=== PATIENT | male | born 1960 | race Caucasian/White ===

== ENCOUNTER 2020-03-31 09:40 | Inpatient (IN) | payer OTHER, SELFPAY ==
[2020-03-31] VITALS (7 sets, daily range): BP systolic 143–173; BP diastolic 74–104; PULSE 111–130; RESP 18–22; TEMP 36.6–37.2; O2SAT 93–97; BMI 29.7
[2020-03-31] MEDS: LORazepam 2 MG/ML VIAL IM ×2 (10:41→23:40)
--- NOTE | 2020-03-31 10:51 | PC.NURSE ---
pt alert and oriented, skin slightly warm to touch, respirations even and unlabored, pt reports drinking 48 12 oz beers in the last two days in the intent to drink himself into oblivion/ states he just wanted to drink himself to , having racing thoughts and feels depressed as well. sinus tach on the monitor with visible tremor. unable to obtain an iv access at this time.
--- NOTE | 2020-03-31 12:43 | ED.ALCOHOL ---
HPI - Alcohol General Chief Complaint: ETOH/Substance Use Stated Complaint: alcohol withdrawal Time Seen by Provider: 03/31/20 10:01 Source: patient Mode of arrival: ambulatory Limitations: no limitations History of Present Illness HPI narrative: 60yoM c PMHx of alcohol dependent, liver cirrhosis, hypertension, anxiety, GI disease and psoriasis presenting to the ED c c/o increased depression and attempts of SI by drinking 48 12 oz beers in the past 2 days. Patient states ?I just want to drink myself to I keep having racing thoughts?. Reports he is currently homeless. Denies any drug usage. Denies any auditory or visual hallucination or self-injury baker. Related Data Allergies Allergy/AdvReac Type Severity Reaction Status Date / Time trazodone Allergy Nasal Verified 03/31/20 10:01 congestion Review of Systems Review of Systems: Constitutional : No Fever, No Chills ENT/Mouth : No Ear Pain, No Nasal Congestion, No sore throat Eyes: No Eye Pain, No Swelling, No Redness Cardiovascular : No Chest Pain, No SOB Respiratory : No Cough, No Sputum, No Dyspnea Gastrointestinal : No ingestions, No Nausea, No Vomiting, No Diarrhea, No Hematochezia, No Melena Genitourinary : No Dysuria, No Urinary Frequency, No Hematuria Musculoskeletal : No Myalgias Skin : No Skin Lesions, No rash Neuro : No Weakness, No Numbness, No Paresthesias, No Dizziness, No Headache Psych : + Anxiety, + Depression, + SI, No HI, No AVH, + thoughts of self injury Heme/Lymph: No Lymphadenopathy Endocrine : No Polyuria, No Polydipsia Yes all other systems are reviewed and are negative [facility] Past Medical History Attestation statement: The following information was validated with the patient. Medical History HTN (hypertension) Psoriasis Social History Social History Alcohol intake: current Alcohol intake frequency: 3 or more drinks per day Alcohol type: beer Smoking Status: Never smoker Use of substances other than those prescribed or required for medical reasons: No Advance Directives: No Advance Directives Information Provided: No Physical Exam Vital Signs: Vital Signs: Last Vital Signs Temp 98 F 03/31/20 14:00 Pulse 111 H 03/31/20 14:00 Resp 18 03/31/20 14:00 BP 144/87 H 03/31/20 10:46 Pulse Ox 93 03/31/20 14:00 Body Mass Index 29.7 vital signs have been reviewed as normal and appeared to be correct. Blood pressure normal. Heart rate normal. Respiration rate normal. Temperature normal. Oxygen saturation normal. Appearance: Alert. Oriented X3. No acute distress. ETOH on breath. Head: Normal external exam. Normocephalic. Atraumatic. No Chambers signs noted. No raccoon eyes noted Eyes: PERRLA. EOMI. Conjunctiva and sclera normal. Eyelids normal. ENT: EAC normal. TM's Normal. Pharynx normal. Uvula midline. Moist mucous membranes. No trismus noted. No drooling noted. No muffled voice noted. Neck: Normal inspection. Neck supple. FROM. No adenopathy. Thyroid Normal. No meningeal signs. No neck mass noted. CVS: Normal heart rate and rhythm. Heart sound normal. No murmurs noted. Pulses normal throughout. Respiratory: No respiratory distress. Painless inspiration. Breath sounds normal. No wheezes/rales/rhonchi noted. Chest nontender. No accessory muscle usage noted or decreased air movement noted. Abdomen: Soft and nontender. Bowel sounds normal in all 4 quadrants. No distention noted. No organomegaly noted. No visible injury noted. Back: No CVA tenderness. Full range of motion noted. Skin: Skin warm and dry. Normal skin color. Normal skin turgor. No lesions/lacerations noted. Patient noted to have psoriasis to bilateral lower extremities. No signs of infection. Extremities: No lower extremity edema. Extremities exhibit normal range of motion. Extremities nontender. Neuro: Oriented X 3. No motor deficit. No sensory deficit. Reflexes normal. Psych: Appearance grossly normal, well-kept, mental status normal, speech and movement normal, speech clear, patient appears very sad and anxious along with depressed. Is cooperative. Does not have a normal thought process/thought content/insight/judgment. Course Course Course Narrative: 10:21 - 60yoM c PMHx of alcohol dependent, liver cirrhosis, hypertension, anxiety, GI disease and psoriasis presenting to the ED c c/o increased depression and attempts of SI by drinking 48 12 oz beers in the past 2 days. Patient states ?I just want to drink myself to I keep having racing thoughts?. - Plan: Labs. Provide 2 mg of Ativan. Then once medically cleared will obtain a BHN evaluation. Reevaluation(s) Reevaluation #1: - AST 103. ALT 84. ETOH level 230. Otherwise all other labs WNL. - patient is currently resting at this time respirations even and unlabored in no apparent distress. Patient medically cleared awaiting BHN evaluation. Will continue to monitor. Time: 15:10 [facility] - Alcohol Medical Records Attestation: I reviewed the patient's medical records. Lab Data Attestation: I reviewed the patient's lab results. Result diagrams: 03/31/20 12:48 03/31/20 12:48 Labs: Lab Results 03/31/20 03/31/20 03/31/20 Range/Units 12:48 12:48 12:48 WBC 7.6 (4.8-10.8) X10*3/uL RBC 4.24 L (4.60-5.80) X10*6/uL Hgb 13.1 L (14.0-18.0) g/dl Hct 37.9 L (42-52) % MCV 89.4 (80-98) fL MCH 30.9 (27.0-33.0) pg MCHC 34.6 (31.0-36.0) g/dl RDW 14.4 (11.0-16.0) % Plt Count 202 (160-400) X10*3/uL MPV 8.7 L (9.4-12.4) fL Immature Gran % (Auto) 0.1 (0.0-0.4) % Neut % (Auto) 73.1 H (45-73) % Lymph % (Auto) 17.5 L (20-40) % [place] % (Auto) 7.3 (2-11) % Eos % (Auto) 1.3 (0-4) % Baso % (Auto) 0.7 (0-2) % Lymph # (Auto) 1.3 (1.2-4.9) X10*3/uL [place] # (Auto) 0.6 (0.1-1.2) X10*3/uL Eos # (Auto) 0.1 (0.0-0.4) X10*3/uL Baso # (Auto) 0.1 (0.0-0.2) X10*3/uL Abs Immat Gran (auto) 0.01 (0.00-0.03) X10*3/uL Absolute Neuts (auto) 5.5 (2.0-8.3) X10*3/uL Absolute Nucleated RBC 0.000 (0.0-0.012) X10*3/uL Nucleated RBC % (auto) 0.0 (0.0-0.2) /100WBC Hold Purple Top SEE NOTE Hold Blue Top SEE NOTE Sodium (135-145) mmol/L Potassium (3.3-5.1) mmol/l Chloride (96-108) mmol/L Carbon Dioxide (22-29) mmol/L Anion Gap (12-20) BUN (9-16) mg/dL Creatinine (0.5-1.4) mg/dL Estim Creat Clear Calc Estimated GFR Random Glucose (60-115) mg/dL Calcium (8.4-10.2) mg/dL Magnesium (1.6-2.6) mg/dL Total Bilirubin (0.0-1.0) mg/dL Direct Bilirubin (0.0-0.5) mg/dL AST (5-37) U/L ALT (0-40) U/L Alkaline Phosphatase (39-117) U/L Total Protein (6.5-8.0) g/dL Albumin (3.5-5.0) g/dL Urine Color Urine Appearance Urine pH (5.0-8.0) Ur Specific [place] (1.005-1.025) Urine Protein (NEG-TRACE) MG/DL Urine Glucose (UA) (NEG) MG/DL Urine Ketones (NEG) MG/DL Urine Blood (NEG) Urine Nitrite (NEG) Ur Leukocyte Esterase (NEG) Urine RBC (0) /HPF Urine WBC (0-4) /HPF Ur Squamous Epith Cells /LPF Urine Bacteria /LPF Urine Opiates Screen (Not Detect) Ur Barbiturates Screen (Not Detect) Ur Phencyclidine Scrn (Not Detect) Ur Amphetamines Screen (Not Detect) U Benzodiazepines Scrn (Not Detect) Urine Cocaine Screen (Not Detect) U Marijuana (THC) Screen (Not Detect) Ethyl Alcohol mg/dL 03/31/20 03/31/20 03/31/20 Range/Units 12:48 12:48 14:07 WBC (4.8-10.8) X10*3/uL RBC (4.60-5.80) X10*6/uL Hgb (14.0-18.0) g/dl Hct (42-52) % MCV (80-98) fL MCH (27.0-33.0) pg MCHC (31.0-36.0) g/dl RDW (11.0-16.0) % Plt Count (160-400) X10*3/uL MPV (9.4-12.4) fL Immature Gran % (Auto) (0.0-0.4) % Neut % (Auto) (45-73) % Lymph % (Auto) (20-40) % [place] % (Auto) (2-11) % Eos % (Auto) (0-4) % Baso % (Auto) (0-2) % Lymph # (Auto) (1.2-4.9) X10*3/uL [place] # (Auto) (0.1-1.2) X10*3/uL Eos # (Auto) (0.0-0.4) X10*3/uL Baso # (Auto) (0.0-0.2) X10*3/uL Abs Immat Gran (auto) (0.00-0.03) X10*3/uL Absolute Neuts (auto) (2.0-8.3) X10*3/uL Absolute Nucleated RBC (0.0-0.012) X10*3/uL Nucleated RBC % (auto) (0.0-0.2) /100WBC Hold Purple Top Hold Blue Top Sodium 138 (135-145) mmol/L Potassium 3.9 (3.3-5.1) mmol/l Chloride 102 (96-108) mmol/L Carbon Dioxide 20 L (22-29) mmol/L Anion Gap 20 (12-20) BUN 4 L (9-16) mg/dL Creatinine 0.65 (0.5-1.4) mg/dL Estim Creat Clear Calc 143.8 Estimated GFR > 60 Random Glucose 94 (60-115) mg/dL Calcium 7.6 L (8.4-10.2) mg/dL Magnesium 1.9 (1.6-2.6) mg/dL Total Bilirubin 0.4 (0.0-1.0) mg/dL Direct Bilirubin 0.3 (0.0-0.5) mg/dL AST 103 H (5-37) U/L ALT 84 H (0-40) U/L Alkaline Phosphatase 67 (39-117) U/L Total Protein 6.4 L (6.5-8.0) g/dL Albumin 3.9 (3.5-5.0) g/dL Urine Color YELLOW Urine Appearance CLEAR Urine pH 6.0 (5.0-8.0) Ur Specific [place] 1.015 (1.005-1.025) Urine Protein NEG (NEG-TRACE) MG/DL Urine Glucose (UA) NEG (NEG) MG/DL Urine Ketones 15 (NEG) MG/DL Urine Blood TRACE (NEG) Urine Nitrite NEG (NEG) Ur Leukocyte Esterase NEG (NEG) Urine RBC 0-2 (0) /HPF Urine WBC 0 (0-4) /HPF Ur Squamous Epith Cells TRACE /LPF Urine Bacteria NONE /LPF Urine Opiates Screen (Not Detect) Ur Barbiturates Screen (Not Detect) Ur Phencyclidine Scrn (Not Detect) Ur Amphetamines Screen (Not Detect) U Benzodiazepines Scrn (Not Detect) Urine Cocaine Screen (Not Detect) U Marijuana (THC) Screen (Not Detect) Ethyl Alcohol 230 mg/dL 03/31/20 Range/Units 14:07 WBC (4.8-10.8) X10*3/uL RBC (4.60-5.80) X10*6/uL Hgb (14.0-18.0) g/dl Hct (42-52) % MCV (80-98) fL MCH (27.0-33.0) pg MCHC (31.0-36.0) g/dl RDW (11.0-16.0) % Plt Count (160-400) X10*3/uL MPV (9.4-12.4) fL Immature Gran % (Auto) (0.0-0.4) % Neut % (Auto) (45-73) % Lymph % (Auto) (20-40) % [place] % (Auto) (2-11) % Eos % (Auto) (0-4) % Baso % (Auto) (0-2) % Lymph # (Auto) (1.2-4.9) X10*3/uL [place] # (Auto) (0.1-1.2) X10*3/uL Eos # (Auto) (0.0-0.4) X10*3/uL Baso # (Auto) (0.0-0.2) X10*3/uL Abs Immat Gran (auto) (0.00-0.03) X10*3/uL Absolute Neuts (auto) (2.0-8.3) X10*3/uL Absolute Nucleated RBC (0.0-0.012) X10*3/uL Nucleated RBC % (auto) (0.0-0.2) /100WBC Hold Purple Top Hold Blue Top Sodium (135-145) mmol/L Potassium (3.3-5.1) mmol/l Chloride (96-108) mmol/L Carbon Dioxide (22-29) mmol/L Anion Gap (12-20) BUN (9-16) mg/dL Creatinine (0.5-1.4) mg/dL Estim Creat Clear Calc Estimated GFR Random Glucose (60-115) mg/dL Calcium (8.4-10.2) mg/dL Magnesium (1.6-2.6) mg/dL Total Bilirubin (0.0-1.0) mg/dL Direct Bilirubin (0.0-0.5) mg/dL AST (5-37) U/L ALT (0-40) U/L Alkaline Phosphatase (39-117) U/L Total Protein (6.5-8.0) g/dL Albumin (3.5-5.0) g/dL Urine Color Urine Appearance Urine pH (5.0-8.0) Ur Specific [place] (1.005-1.025) Urine Protein (NEG-TRACE) MG/DL Urine Glucose (UA) (NEG) MG/DL Urine Ketones (NEG) MG/DL Urine Blood (NEG) Urine Nitrite (NEG) Ur Leukocyte Esterase (NEG) Urine RBC (0) /HPF Urine WBC (0-4) /HPF Ur Squamous Epith Cells /LPF Urine Bacteria /LPF Urine Opiates Screen Not Detected (Not Detect) Ur Barbiturates Screen POSITIVE H (Not Detect) Ur Phencyclidine Scrn Not Detected (Not Detect) Ur Amphetamines Screen Not Detected (Not Detect) U Benzodiazepines Scrn POSITIVE H (Not Detect) Urine Cocaine Screen Not Detected (Not Detect) U Marijuana (THC) Screen Not Detected (Not Detect) Ethyl Alcohol mg/dL Discharge Plan Discharge Clinical Impression: Alcoholic intoxication, Depression, Suicidal ideation
[2020-03-31 12:58] LABS: MANUAL DIFF FLAG NO
[2020-03-31 12:59] LABS: Basophils Absolute Auto 0.1 X10*3/uL (0.0-0.2); Basophils Percent Auto 0.7 % (0-2); Eosinophils Absolute Auto 0.1 X10*3/uL (0.0-0.4); Eosinophils Percent Auto 1.3 % (0-4); Hematocrit 37.9 % (42-52); Hemoglobin 13.1 g/dl (14.0-18.0); Imm Gran Abs Auto 0.01 X10*3/uL (0.00-0.03); Imm Gran Pct Auto 0.1 % (0.0-0.4); Lymphocytes Absolute Auto 1.3 X10*3/uL (1.2-4.9); Lymphocytes Percent Auto 17.5 % (20-40); Mean Corpuscular HGB Conc 34.6 g/dl (31.0-36.0); Mean Corpuscular Hemoglobin 30.9 pg (27.0-33.0); Mean Corpuscular Volume 89.4 fL (80-98); Mean Platelet Volume 8.7 fL (9.4-12.4); Monocytes Absolute Auto 0.6 X10*3/uL (0.1-1.2); Monocytes Percent Auto 7.3 % (2-11); Neutrophils Absolute Auto 5.5 X10*3/uL (2.0-8.3); Neutrophils Percent Auto 73.1 % (45-73); Platelet Count 202 X10*3/uL (160-400); Red Blood Count 4.24 X10*6/uL (4.60-5.80); Red Cell Distribution Width 14.4 % (11.0-16.0); White Blood Count 7.6 X10*3/uL (4.8-10.8)
[2020-03-31 13:44] LABS: Ethanol 230 mg/dL
[2020-03-31 13:51] LABS: Alanine Aminotransferase 84 U/L (0-40); Albumin Level 3.9 g/dL (3.5-5.0); Alkaline Phosphatase 67 U/L (39-117); Anion Gap 20 (12-20); Aspartate Amino Transferase 103 U/L (5-37); Bilirubin Direct 0.3 mg/dL (0.0-0.5); Bilirubin Total 0.4 mg/dL (0.0-1.0); Blood Urea Nitrogen 4 mg/dL (9-16); Calcium 7.6 mg/dL (8.4-10.2); Carbon Dioxide 20 mmol/L (22-29); Chloride 102 mmol/L (96-108); Creatinine Clr Calc Pharmacy 143.8; Estimated Glomerular Filt Rate > 60; Glucose Random 94 mg/dL (60-115); Magnesium 1.9 mg/dL (1.6-2.6); Potassium 3.9 mmol/l (3.3-5.1); Sodium 138 mmol/L (135-145); Total Protein 6.4 g/dL (6.5-8.0)
[2020-03-31 14:14] LABS: Glucose Urine UA NEG (NEG); Leukocyte Esterase Urine NEG (NEG); Nitrite Urine NEG (NEG); Specific Gravity - Urine 1.015 (1.005-1.025); Urine Blood TRACE (NEG); Urine Ketones 15 MG/DL (NEG); Urine Protein NEG (NEG-TRACE)
[2020-03-31 14:30] LABS: Appearance Urine CLEAR; Color Urine YELLOW
--- NOTE | 2020-03-31 14:41 | PC.NURSE ---
[facility] contacted for pt eval, pt awaiting clinician.
[2020-03-31 14:42] LABS: Amphetamine Screen Urine Not Detected (Not Detect); Barbiturates, Urine POSITIVE (Not Detect); Benzodiazepines Screen Urine POSITIVE (Not Detect); Cannabinoid Screen Urine Not Detected (Not Detect); Cocaine Screen Urine Not Detected (Not Detect); Opiate Screen Urine Not Detected (Not Detect); Phencyclidine Screen Urine Not Detected (Not Detect)
[2020-03-31 14:43] LABS: RBC Urine 0-2 /HPF (0); Squamous Epithelial Cell Urine TRACE /LPF; WBC Urine 0 /HPF (0-4)
[2020-03-31] MEDS: LORazepam 1 MG TABLET 2 MG PO ×2 (16:19→20:09)
--- NOTE | 2020-03-31 16:25 | PC.NURSE ---
Pt ambulated to pod with steady gait. Appears tremulous. PT reporting symptoms of withdrawal, medicated per EMAR. Pt denies other complaints. pt waiting to speak with N.
[2020-03-31] MEDS: chlordiazePOXIDE HCl 25 MG CAPSULE 50 MG PO (18:09)
--- NOTE | 2020-03-31 22:25 | PC.NURSE ---
Patient in bed appears sleeping, CIWA was 0 at this time, will continue to monitor for withdrawal, denied distress at this time, will continue to monitor.
--- NOTE | 2020-03-31 23:04 | PC.NURSE ---
Patient BP 161/94, HR 127, provider notified/ordered to move patient to main ED, Patient made aware, will continue to monitor.
[2020-04-01] VITALS (9 sets, daily range): BP systolic 136–164; BP diastolic 84–99; PULSE 93–112; RESP 16–22; TEMP 36.4–37; O2SAT 95–100
[2020-04-01] MEDS: PHENobarbitaL sodium 130 MG/ML VIAL 186 MG IM (00:03)
--- NOTE | 2020-04-01 00:27 | MHC.CARE ---
At the request of GATO Nova, CARE Team reaches out to [facility] to request a current medication list. Med list is faxed to THUY singh from [place]. [facility] staff are very familiar with pt and willing to provide additional info as needed.
--- NOTE | 2020-04-01 00:42 | PC.NURSE ---
03/31/20 2340: Patient awake and alert, diaphoretic with tremors. Remains tachycardic on monitor with rate 120s. Multiple IV attempts by attendings unsuccessful. IM Ativan given 2mg per order. 04/01/20 0000: IV access obtained by Dr. Stringer to left AC via ultrasound and IVF NS bolus started. 04/01/20 0005: IM Phenobarb given as ordered. Pt remains awake and alert. Linens changed due to patient diaphoresis. Pt able to stand at side of bed with assistance. Placed back on quality assurance monitor body with rates 115-120 bpm. 1:[address]
--- NOTE | 2020-04-01 01:10 | MHC.CARE ---
CARE Team notifies [facility], who is currently conducting an EATS bedsearch that pt is being medically admitted. Per Quintero at [facility], pt was cleared of needing inpt LOC. Please reconsult [facility] or CARE Team as needed for substance use treatment referral once medically cleared.
[2020-04-01 02:42] LABS: COVID-19 Test Negative (Negative); IDNOW Serial# 9DD0AD1C
[2020-04-01] MEDS: PHENobarbitaL sodium 130 MG/ML VIAL 140 MG IM ×2 (03:02→06:06)
--- NOTE | 2020-04-01 03:04 | PC.NURSE ---
Pt sleeping initially when entering room. Awoke easily with verbal stimuli. Phenobarb dose administered as ordered. VSS. Pt denies tremors/diaphoresis/headache. No acute distress noted at this time, will continue to monitor. awaiting bed assignment
--- NOTE | 2020-04-01 03:59 | PC.NURSE ---
Attempt to call [facility] for report, will call down here when ready
--- NOTE | 2020-04-01 05:52 | PM.IMHP ---
History of Present Illness Date of Service: 03/31/20 Chief Complaint: Alcohol withdrawal This is a 60-year-old male with history of alcohol abuse, depression, hypertension, presents to the hospital initially stating that he had a suicide attempt by drinking 40 years in 48 hours. He was in that he would not wake up after drinking as many beers. He is severely depressed and does not want to live. [facility] evaluated patient and he was awaiting bed surge when he started having withdrawal symptoms including shakiness, hypertensive, tachycardic. Patient therefore is going to be admitted to medical team for alcohol withdrawal. He currently denies any headache, change in vision, chest pain, cough, shortness of breath, no abdominal pain. No nausea or vomiting but has diarrhea that started today. He has no urinary symptoms and No lower extremity edema. On his presentation to pr his heart rate is 128, temperature of 98.5?, respiratory rate of 20, blood pressure 173/91, satting 95% on room air Labs are significant for WBC count of 7.6, hemoglobin of 13.1, hematocrit 37.9, sodium of 138, potassium of 3.9, AST of 103, ALT of 84, UA negative, positive UDS for barbiturates as well as benzos, negative COVID Past medical history: Hypertension, cirrhosis, alcohol abuse- has not taking his blood pressure medications in 2 weeks Surgical history: Denies Family history: Denies Social history: Comes from home, does not drink tobacco, drinks alcohol daily 6 pack per day, uses no drugs. Review of Systems Review of Systems: Yes all other systems are reviewed and are negative [facility] Medical History HTN (hypertension) Psoriasis Social History Alcohol intake: current Alcohol intake frequency: 3 or more drinks per day Alcohol type: beer Smoking Status: Never smoker Use of substances other than those prescribed or required for medical reasons: No Advance Directives: No Advance Directives Information Provided: No Meds Allergies Allergy/AdvReac Type Severity Reaction Status Date / Time trazodone Allergy Nasal Verified 03/31/20 10:01 congestion Home Medications Medication Instructions Recorded Confirmed Type atenolol 25 mg PO DAILY 04/01/20 04/01/20 History disulfiram 250 mg PO DAILY 04/01/20 04/01/20 History gabapentin 300 mg PO TID 04/01/20 04/01/20 History hydroxyzine HCl 50 mg PO TID PRN 04/01/20 04/01/20 History ondansetron [Zofran ODT] 4 mg PO Q8H PRN 04/01/20 04/01/20 History paroxetine HCl 40 mg PO DAILY 04/01/20 04/01/20 History thiamine HCl (vitamin B1) 100 mg PO DAILY 04/01/20 04/01/20 History Physical Exam Vital Signs and Narrative: Vital Signs: Last Vital Signs Temp 97.7 F 04/01/20 05:31 Pulse 93 04/01/20 05:31 Resp 20 04/01/20 05:31 BP 138/88 04/01/20 05:31 Pulse Ox 96 04/01/20 05:31 Body Mass Index 29.7 Const: Other: Diaphoretic, appears uncomfortable, shaking Eyes: General: appearance normal, both eyes and all related structures Resp: Effort & Inspection: normal respiratory effort and able to speak in complete sentences Cardio: Rate: regular rate Rhythm: regular rhythm GI: Palpation (GI): Soft to palpation Auscultation: normal bowel sounds Skin: General skin exam: no rashes or lesions noted Neuro: Other: Asterixis present Cognition (Neuro): normal cognition Extrem: General: Yes normal to inspection and Yes no pedal edema Results Labs CBC and Chem 7: 03/31/20 12:48 03/31/20 12:48 Labs: Laboratory Results - last 24 hr 03/31/20 03/31/20 03/31/20 12:48 12:48 12:48 MCV 89.4 MCH 30.9 MCHC 34.6 RDW 14.4 Plt Count 202 MPV 8.7 L Immature Gran % (Auto) 0.1 Neut % (Auto) 73.1 H Lymph % (Auto) 17.5 L [place] % (Auto) 7.3 Eos % (Auto) 1.3 Baso % (Auto) 0.7 Lymph # (Auto) 1.3 [place] # (Auto) 0.6 Eos # (Auto) 0.1 Baso # (Auto) 0.1 Abs Immat Gran (auto) 0.01 Absolute Neuts (auto) 5.5 Absolute Nucleated RBC 0.000 Nucleated RBC % (auto) 0.0 Hold Purple Top SEE NOTE Hold Blue Top SEE NOTE Anion Gap Estim Creat Clear Calc Estimated GFR Random Glucose Calcium Magnesium Total Bilirubin Direct Bilirubin AST ALT Alkaline Phosphatase Total Protein Albumin Urine Color Urine Appearance Urine pH Ur Specific [place] Urine Protein Urine Glucose (UA) Urine Ketones Urine Blood Urine Nitrite Ur Leukocyte Esterase Urine RBC Urine WBC Ur Squamous Epith Cells Urine Bacteria Urine Opiates Screen Ur Barbiturates Screen Ur Phencyclidine Scrn Ur Amphetamines Screen U Benzodiazepines Scrn Urine Cocaine Screen U Marijuana (THC) Screen Ethyl Alcohol COVID-19 (SERJIO) COVID-19 [employer] 03/31/20 03/31/20 03/31/20 12:48 12:48 14:07 MCV MCH MCHC RDW Plt Count MPV Immature Gran % (Auto) Neut % (Auto) Lymph % (Auto) [place] % (Auto) Eos % (Auto) Baso % (Auto) Lymph # (Auto) [place] # (Auto) Eos # (Auto) Baso # (Auto) Abs Immat Gran (auto) Absolute Neuts (auto) Absolute Nucleated RBC Nucleated RBC % (auto) Hold Purple Top Hold Blue Top Anion Gap 20 Estim Creat Clear Calc 143.8 Estimated GFR > 60 Random Glucose 94 Calcium 7.6 L Magnesium 1.9 Total Bilirubin 0.4 Direct Bilirubin 0.3 AST 103 H ALT 84 H Alkaline Phosphatase 67 Total Protein 6.4 L Albumin 3.9 Urine Color YELLOW Urine Appearance CLEAR Urine pH 6.0 Ur Specific [place] 1.015 Urine Protein NEG Urine Glucose (UA) NEG Urine Ketones 15 Urine Blood TRACE Urine Nitrite NEG Ur Leukocyte Esterase NEG Urine RBC 0-2 Urine WBC 0 Ur Squamous Epith Cells TRACE Urine Bacteria NONE Urine Opiates Screen Ur Barbiturates Screen Ur Phencyclidine Scrn Ur Amphetamines Screen U Benzodiazepines Scrn Urine Cocaine Screen U Marijuana (THC) Screen Ethyl Alcohol 230 COVID-19 (SERJIO) COVID-19 [employer] 03/31/20 04/01/20 14:07 02:22 MCV MCH MCHC RDW Plt Count MPV Immature Gran % (Auto) Neut % (Auto) Lymph % (Auto) [place] % (Auto) Eos % (Auto) Baso % (Auto) Lymph # (Auto) [place] # (Auto) Eos # (Auto) Baso # (Auto) Abs Immat Gran (auto) Absolute Neuts (auto) Absolute Nucleated RBC Nucleated RBC % (auto) Hold Purple Top Hold Blue Top Anion Gap Estim Creat Clear Calc Estimated GFR Random Glucose Calcium Magnesium Total Bilirubin Direct Bilirubin AST ALT Alkaline Phosphatase Total Protein Albumin Urine Color Urine Appearance Urine pH Ur Specific [place] Urine Protein Urine Glucose (UA) Urine Ketones Urine Blood Urine Nitrite Ur Leukocyte Esterase Urine RBC Urine WBC Ur Squamous Epith Cells Urine Bacteria Urine Opiates Screen Not Detected Ur Barbiturates Screen POSITIVE H Ur Phencyclidine Scrn Not Detected Ur Amphetamines Screen Not Detected U Benzodiazepines Scrn POSITIVE H Urine Cocaine Screen Not Detected U Marijuana (THC) Screen Not Detected Ethyl Alcohol COVID-19 (SERJIO) Negative COVID-19 Clin Com See Note Assessment and Plan (1) Depression: Status: Acute (2) Suicidal ideation: Status: Acute (3) Alcohol withdrawal syndrome: Qualifiers: Complication of substance-induced condition: with unspecified complication Qualified Code(s): F10.239 - Alcohol dependence with withdrawal, unspecified Status: Acute (4) EtOH dependence: Status: Acute (5) HTN (hypertension): Status: Acute This is a 58 O2 year old male with past medical history of depression who presents to the hospital with suicidal ideation/attempt, found to be in alcohol withdrawal # alcohol withdrawal - daily drinker, attempted to drink 48 beers to end his life 2 days prior to presentation to the hospital - will start him on phenobarbital - folic acid and thiamine - monitor for improving withdrawal symptoms # suicide attempt/ideation - evaluated by psych - patient awaiting bed - management per psych - sitter # hypertension - continue atenolol DVT prophylaxis heparin subQ
[2020-04-01] MEDS: Heparin Sodium,Porcine 5,000 UNIT/ML VIAL 5000 UNIT SUBCUT ×2 (06:06→17:16)
[2020-04-01] MEDS: 0.9 % Sodium Chloride Flush 3 ML SYRINGE IVFLUSH ×3 (06:07→17:18)
[2020-04-01 07:07] LABS: MANUAL DIFF FLAG NO
[2020-04-01 07:13] LABS: Basophils Absolute Auto 0.1 X10*3/uL (0.0-0.2); Basophils Percent Auto 0.9 % (0-2); Eosinophils Absolute Auto 0.2 X10*3/uL (0.0-0.4); Eosinophils Percent Auto 3.1 % (0-4); Hematocrit 37.8 % (42-52); Hemoglobin 13.1 g/dl (14.0-18.0); Imm Gran Abs Auto 0.02 X10*3/uL (0.00-0.03); Imm Gran Pct Auto 0.3 % (0.0-0.4); Lymphocytes Absolute Auto 1.2 X10*3/uL (1.2-4.9); Lymphocytes Percent Auto 21.1 % (20-40); Mean Corpuscular HGB Conc 34.7 g/dl (31.0-36.0); Mean Corpuscular Hemoglobin 30.5 pg (27.0-33.0); Mean Corpuscular Volume 88.1 fL (80-98); Mean Platelet Volume 9.4 fL (9.4-12.4); Monocytes Absolute Auto 0.6 X10*3/uL (0.1-1.2); Monocytes Percent Auto 10.9 % (2-11); Neutrophils Absolute Auto 3.7 X10*3/uL (2.0-8.3); Neutrophils Percent Auto 63.7 % (45-73); Platelet Count 185 X10*3/uL (160-400); Red Blood Count 4.29 X10*6/uL (4.60-5.80); Red Cell Distribution Width 14.1 % (11.0-16.0); White Blood Count 5.9 X10*3/uL (4.8-10.8)
[2020-04-01 07:38] LABS: Anion Gap 17 (12-20); Blood Urea Nitrogen 4 mg/dL (9-16); Carbon Dioxide 24 mmol/L (22-29); Chloride 97 mmol/L (96-108); Creatinine Clr Calc Pharmacy 158.4; Estimated Glomerular Filt Rate > 60; Glucose Random 78 mg/dL (60-115); Potassium 3.9 mmol/l (3.3-5.1); Sodium 134 mmol/L (135-145)
[2020-04-01 07:48] LABS: Calcium 8.2 mg/dL (8.4-10.2)
[2020-04-01] MEDS: PHENobarbitaL 30 MG TABLET 60 MG PO ×2 (09:35→20:22)
[2020-04-01] MEDS: Thiamine HCL 100 MG TABLET PO (09:35)
[2020-04-01] MEDS: Folic Acid 1 MG TABLET PO (09:35)
--- NOTE | 2020-04-01 10:52 | MHC.CM.PN ---
Addendum entered by Samina Thomas 04/01/20 10:58: pt will need a BHN evaluation once medically cleared Original Note: Pt reports he was recently asked to leave [place] and is now homeless. pt uses no DME and had no home services. Pt does have a PCP, Elisabet Prabhakar. Pt reports he has signed a HCP in the past. Pt reports being interested in treatment for his alcohol use and has spoken to the CARE team. Current DC plan pending CARE team referrals.
--- NOTE | 2020-04-01 13:22 | HO.PM.IMPN ---
Subjective Subjective Date of Service: 04/01/20 Interval History: Seen in f/u for alcohol withdrawal Review of Systems Gen: no fever Resp: no sob, no cough CV: no chest, no ABRAMS, no leg edema GI: No n/v, no abd pain Neuro: No confusion, some tremors Physical Exam Vital Signs: Vital Signs: Last Vital Signs Temp 98.6 F 04/01/20 11:28 Pulse 100 04/01/20 11:28 Resp 18 04/01/20 11:28 BP 142/86 H 04/01/20 11:28 Pulse Ox 97 04/01/20 11:28 Body Mass Index 29.7 General: AO X 3, no acute distress Resp: CTA bilateral CVS: S1,S2,RRR GI: +BS, NT, no distention Skin: No rash Neuro: motor grossly intact, tremors in hands Psych: appropriate affect Objective Data Current Medications Generic Name Dose Route Start Last Admin Trade Name Freq PRN Reason Stop Dose Admin Acetaminophen 650 mg 04/01/20 05:44 Acetaminophen 325 Mg Tablet PO Q6H PRN Pain, Mild (Pain Scale 1-3) Docusate Sodium 100 mg 04/01/20 05:44 Docusate Sodium 100 Mg Capsule PO DAILY PRN Constipation Folic Acid 1 mg 04/01/20 09:00 04/01/20 09:35 Folic Acid 1 Mg Tablet PO 1 mg DAILY SCARLETT Administration Heparin Sodium (Porcine) 5,000 unit 04/01/20 06:00 04/01/20 06:06 Heparin Sodium,Porcine 5,000 Unit/Ml Vial SUBCUT 5,000 unit Q12H SCARLETT Administration Medication 1 each 04/01/20 09:00 No Benzodiazepines MISCELLANE DAILY SCARLETT Ondansetron HCl 4 mg 04/01/20 05:44 Ondansetron Hcl 4 Mg/2 Ml Vial IVPUSH Q8H PRN Nausea and Vomiting Phenobarbital 60 mg 04/01/20 09:00 04/01/20 09:35 Phenobarbital 30 Mg Tablet PO 04/02/20 21:01 60 mg BID SCARLETT Administration Phenobarbital 30 mg 04/03/20 09:00 Phenobarbital 30 Mg Tablet PO 04/04/20 21:01 BID SCARLETT Phenobarbital 30 mg 04/05/20 09:00 Phenobarbital 30 Mg Tablet PO 04/06/20 09:01 DAILY SCARLETT Sodium Chloride 3 ml 04/01/20 05:44 04/01/20 09:34 0.9 % Sodium Chloride Flush 3 Ml Syringe IVFLUSH 3 ml QSHIFT SCARLETT Administration Thiamine HCl 100 mg 04/01/20 09:00 04/01/20 09:35 Thiamine Hcl 100 Mg Tablet PO 100 mg DAILY SCARLETT Administration Labs CBC & Chem 7: 04/01/20 06:11 04/01/20 06:11 Assessment and Plan (1) Depression: Status: Acute (2) Suicidal ideation: Status: Acute (3) Alcohol withdrawal syndrome: Status: Acute (4) EtOH dependence: Status: Acute (5) HTN (hypertension): Status: Acute Assessment and Plan: 58 O1 year old male with past medical history of depression who presents to the hospital with suicidal ideation/attempt, found to be in alcohol withdrawal # alcohol withdrawal - daily drinker, attempted to drink 48 beers to end his life 2 days prior to presentation to the hospital - on phenobarbital - folic acid and thiamine - monitor for improving withdrawal symptoms # suicide attempt/ideation - evaluated by psych - patient awaiting bed - management per psych - sitter -WEN gutierres when medically ready # hypertension - continue atenolol DVT prophylaxis heparin subQ
[2020-04-01] MEDS: hydrOXYzine HCL 25 MG TABLET PO (19:16)
[2020-04-01] MEDS: PHENobarbitaL sodium 130 MG/ML VIAL IM (23:07)
[2020-04-02] VITALS: BP 165/83; PULSE 115; RESP 18; TEMP 37.1; O2SAT 98
[2020-04-02] MEDS: 0.9 % Sodium Chloride Flush 3 ML SYRINGE IVFLUSH ×3 (00:53→17:24)
[2020-04-02] MEDS: hydrOXYzine HCL 25 MG TABLET PO ×4 (03:35→20:14)
[2020-04-02 03:46] VITALS: BP 179/91; PULSE 113; RESP 20; TEMP 36.3; O2SAT 96
[2020-04-02] MEDS: Heparin Sodium,Porcine 5,000 UNIT/ML VIAL 5000 UNIT SUBCUT ×2 (06:31→17:24)
[2020-04-02 07:34] VITALS: BP 160/84; PULSE 75; RESP 18; TEMP 36.8; O2SAT 93
[2020-04-02] MEDS: PHENobarbitaL sodium 65 MG/ML VIAL 130 MG IM (07:59)
[2020-04-02] MEDS: PHENobarbitaL 30 MG TABLET 60 MG PO ×2 (09:33→20:14)
[2020-04-02] MEDS: Folic Acid 1 MG TABLET PO (09:33)
[2020-04-02] MEDS: Thiamine HCL 100 MG TABLET PO (09:33)
--- NOTE | 2020-04-02 09:58 | HO.PM.IMPN ---
Subjective Subjective Date of Service: 04/02/20 Interval History: Seen in f/u for alcohol withdrawal. He showed more sign of alcohol withdrawal overnight and required additional phenobarbital. Review of Systems Gen: no fever Resp: no sob, no cough CV: no chest, no ABRAMS, no leg edema GI: No n/v, no abd pain Neuro: No confusion, some tremors Physical Exam Vital Signs: Vital Signs: Last Vital Signs Temp 98.2 F 04/02/20 07:34 Pulse 75 04/02/20 07:34 Resp 18 04/02/20 07:34 BP 160/84 H 04/02/20 07:34 Pulse Ox 93 04/02/20 07:34 Body Mass Index 29.7 Const: General: cooperative Resp: Effort & Inspection: normal respiratory effort and able to speak in complete sentences Cardio: Rate: regular rate Rhythm: regular rhythm GI: Palpation (GI): Soft to palpation Auscultation: normal bowel sounds Skin: General skin exam: no rashes or lesions noted Neuro: Other: tremors in hands Cognition (Neuro): normal cognition Extrem: General: Yes no pedal edema Objective Data Current Medications Generic Name Dose Route Start Last Admin Trade Name Freq PRN Reason Stop Dose Admin Acetaminophen 650 mg 04/01/20 05:44 Acetaminophen 325 Mg Tablet PO Q6H PRN Pain, Mild (Pain Scale 1-3) Docusate Sodium 100 mg 04/01/20 05:44 Docusate Sodium 100 Mg Capsule PO DAILY PRN Constipation Folic Acid 1 mg 04/01/20 09:00 04/02/20 09:33 Folic Acid 1 Mg Tablet PO 1 mg DAILY SCARLETT Administration Heparin Sodium (Porcine) 5,000 unit 04/01/20 06:00 04/02/20 06:31 Heparin Sodium,Porcine 5,000 Unit/Ml Vial SUBCUT 5,000 unit Q12H SCARLETT Administration Hydroxyzine HCl 25 mg 04/01/20 18:32 04/02/20 09:37 Hydroxyzine Hcl 25 Mg Tablet PO 25 mg Q6H PRN Administration Anxiety Medication 1 each 04/01/20 09:00 No Benzodiazepines MISCELLANE DAILY SCARLETT Ondansetron HCl 4 mg 04/01/20 05:44 Ondansetron Hcl 4 Mg/2 Ml Vial IVPUSH Q8H PRN Nausea and Vomiting Phenobarbital 60 mg 04/01/20 09:00 04/02/20 09:33 Phenobarbital 30 Mg Tablet PO 04/02/20 21:01 60 mg BID SCARLETT Administration Phenobarbital 30 mg 04/03/20 09:00 Phenobarbital 30 Mg Tablet PO 04/04/20 21:01 BID SCARLETT Phenobarbital 30 mg 04/05/20 09:00 Phenobarbital 30 Mg Tablet PO 04/06/20 09:01 DAILY SCARLETT Sodium Chloride 3 ml 04/01/20 05:44 04/02/20 08:00 0.9 % Sodium Chloride Flush 3 Ml Syringe IVFLUSH 3 ml QSHIFT SCARLETT Administration Thiamine HCl 100 mg 04/01/20 09:00 04/02/20 09:33 Thiamine Hcl 100 Mg Tablet PO 100 mg DAILY SCARLETT Administration Labs CBC & Chem 7: 04/01/20 06:11 04/01/20 06:11 Assessment and Plan (1) Depression: Status: Acute (2) Suicidal ideation: Status: Acute (3) Alcohol withdrawal syndrome: Status: Acute (4) EtOH dependence: Status: Acute (5) HTN (hypertension): Status: Acute Assessment and Plan: 58 O2 year old male with past medical history of depression who presents to the hospital with suicidal ideation/attempt, found to be in alcohol withdrawal # alcohol withdrawal - daily drinker, attempted to drink 48 beers to end his life 2 days prior to presentation to the hospital - on phenobarbital - folic acid and thiamine -Atarax for additional anxiety - monitor for improving withdrawal symptoms # suicide attempt/ideation -was evaluated by [facility] and cleared, he denies SI # hypertension - continue atenolol DVT prophylaxis heparin subQ
[2020-04-02 11:21] VITALS: BP 118/76; PULSE 107; RESP 18; TEMP 36.7; O2SAT 97
--- NOTE | 2020-04-02 13:16 | PC.NURSE ---
Pt given PRN Atarax at 0937, now Pt is feeling more anxious, Dr. Gonzalez contacted, verbal order to given PRN Atarax again NOW. PRN Atarax given. Will continue to monitor anxiety.
[2020-04-02 15:45] VITALS: BP 124/77; PULSE 93; RESP 18; TEMP 36.3; O2SAT 95
--- NOTE | 2020-04-02 15:53 | PC.NURSE ---
During risk assessment PT talked about wanting to go to sleep and not wake up, PT did not indicate having a plan to harm himself. Dr. Gonzalez made aware, sitpetrona requested for PT by . Nursing quality supervisor notified.
[2020-04-02 23:58] VITALS: BP 130/79; PULSE 108; RESP 18; TEMP 36.4; O2SAT 99
[2020-04-03] MEDS: 0.9 % Sodium Chloride Flush 3 ML SYRINGE IVFLUSH ×3 (02:48→15:38)
[2020-04-03] MEDS: hydrOXYzine HCL 25 MG TABLET PO ×4 (02:48→22:11)
[2020-04-03 03:33] VITALS: BP 138/76; PULSE 101; RESP 18; TEMP 36.7; O2SAT 99
[2020-04-03] MEDS: Heparin Sodium,Porcine 5,000 UNIT/ML VIAL 5000 UNIT SUBCUT ×2 (05:28→17:48)
[2020-04-03 08:00] VITALS: BP 158/88; PULSE 118; RESP 20; TEMP 36.3; O2SAT 99
[2020-04-03] MEDS: Thiamine HCL 100 MG TABLET PO (09:28)
[2020-04-03] MEDS: Folic Acid 1 MG TABLET PO (09:29)
[2020-04-03] MEDS: PHENobarbitaL 30 MG TABLET PO ×2 (09:29→21:00)
[2020-04-03 12:00] VITALS: BP 173/98; PULSE 115; RESP 18; O2SAT 99
--- NOTE | 2020-04-03 12:43 | P.PNIM_ITS ---
Subjective Subjective Date of Service: 04/03/20 Interval History: Seen in f/u for alcohol withdrawal. He seems anxious not necessary related to alcohol withdrawal but rather, his social issues Review of Systems Gen: no fever Resp: no sob, no cough CV: no chest, no ABRAMS, no leg edema GI: No n/v, no abd pain Neuro: No confusion, some tremors Physical Exam Vital Signs: Vital Signs: Last Vital Signs Temp 97.4 F 04/03/20 08:00 Pulse 115 H 04/03/20 12:00 Resp 18 04/03/20 12:00 BP 173/98 H 04/03/20 12:00 Pulse Ox 99 04/03/20 12:00 Body Mass Index 29.7 Const: General: cooperative Resp: Effort & Inspection: normal respiratory effort and able to speak in co mplete sentences Cardio: Rate: regular rate Rhythm: regular rhythm GI: Palpation (GI): Soft to palpation Auscultation: normal bowel sounds Skin: General skin exam: no rashes or lesions noted Neuro: Other: tremors in hands Cognition (Neuro): normal cognition Extrem: General: Yes no pedal edema Objective Data Current Medications Generic Name Dose Route Start Last Admin Trade Name Freq PRN Reason Stop Dose Admin Acetaminophen 650 mg 04/01/20 05:44 Acetaminophen 325 Mg Tablet PO Q6H PRN Pain, Mild (Pain Scale 1-3) Docusate Sodium 100 mg 04/01/20 05:44 Docusate Sodium 100 Mg Capsule PO DAILY PRN Constipation Folic Acid 1 mg 04/01/20 09:00 04/03/20 09:29 Folic Acid 1 Mg Tablet PO 1 mg DAILY SCARLETT Administration Heparin Sodium (Porcine) 5,000 unit 04/01/20 06:00 04/03/20 05:28 Heparin Sodium,Porcine 5,000 Unit/Ml Vial SUBCUT 5,000 unit Q12H SCARLETT Administration Hydroxyzine HCl 25 mg 04/01/20 18:32 04/03/20 09:29 Hydroxyzine Hcl 25 Mg Tablet PO 25 mg Q6H PRN Administration Anxiety Medication 1 each 04/01/20 09:00 No Benzodiazepines MISCELLANE DAILY SCARLETT Ondansetron HCl 4 mg 04/01/20 05:44 Ondansetron Hcl 4 Mg/2 Ml Vial IVPUSH Q8H PRN Nausea and Vomiting Phenobarbital 30 mg 04/03/20 09:00 04/03/20 09:29 Phenobarbital 30 Mg Tablet PO 04/04/20 21:01 30 mg BID SCARLETT Administration Phenobarbital 30 mg 04/05/20 09:00 Phenobarbital 30 Mg Tablet PO 04/06/20 09:01 DAILY SCARLETT Sodium Chloride 3 ml 04/01/20 05:44 04/03/20 09:29 0.9 % Sodium Chloride Flush 3 Ml Syringe IVFLUSH 3 ml QSHIFT SCARLETT Administration Thiamine HCl 100 mg 04/01/20 09:00 04/03/20 09:28 Thiamine Hcl 100 Mg Tablet PO 100 mg DAILY SCARLETT Administration Labs CBC & Chem 7: 04/01/20 06:11 04/01/20 06:11 Assessment and Plan (1) Depression: Status: Acute (2) Suicidal ideation: Status: Acute (3) Alcohol withdrawal syndrome: Status: Acute (4) EtOH dependence: Status: Acute (5) HTN (hypertension): Status: Acute Assessment and Plan: 58 O1 year old male with past medical history of depression who presents to the hospital with suicidal ideation/attempt, found to be in alcohol withdrawal # alcohol withdrawal - daily drinker, attempted to drink 48 beers to end his life 2 days prior to presentation to the hospital - on phenobarbital, finish protocol - folic acid and thiamine -Atarax for additional anxiety - monitor for improving withdrawal symptoms # suicide attempt/ideation -was evaluated by [facility] and cleared, he denies SI # hypertension - continue atenolol DVT prophylaxis heparin subQ
--- NOTE | 2020-04-03 14:52 | MHC.CM.PN ---
pt is involved c the [facility] through the [facility] [place]. the counselor's name is walt lee at [phone]. a call was made to him c request for a call back to see what supports/resources the [facility] might have for a DC plan. pt did express interest in going to detox program,he said a person from the care team spoke c him on admission, but he can't remember what he said. i did contact a care team person who came up again today to speak c patient about detox at [place]. this would be a good plan at [place]. cm to cont. to follow.
--- NOTE | 2020-04-03 15:22 | MHC.RECOVSUP ---
Addendum entered by Herman Oviedo, [facility] 04/03/20 15:33: This remote mortgage underwriter spoke with Bobby Robles of [place] [facility] [phone] who reports that patient must complete an inpatient substance use treatment program in order to be eligible to return to [place]. [facility] reports that patient will need to be cleared again by [facility] in order to be eligible for their CSS and that it is likely they will have a bed at some point this week. Original Note: Recovery Support note: Patient is a 60 year old Thai speaking male who presented to [facility] ED due to alcohol intoxication. Patient reported vague SI with a plan to drink himself to . Patient was evaluated by [facility] and was made an [facility] bedsearch prior to being medically admitted for withdrawal. This remote mortgage underwriter met with patient on the medical floor to discuss his alcohol use and treatment options. Patient reports he was previously living at [facility] in [place] however was discharged due to alcohol use. Patient was informed he must be in a program in order to return to [place] [facility]. Patient reports a desire to return and reports he is willing to do whatever he has to in order to satisfy their requirements for him to return. Discussed outpatient supports including AA, IOP and MAT and provided patient with information on these resources. Explained to patient that he was admitted for withdrawal and has essentially completed detox and that the only type of program he would be eligible for is a CSS. Patient is willing to go to a CSS. This remote mortgage underwriter left a message with the exhibits coordinator at [facility], Bridget, . This remote mortgage underwriter spoke with [facility] ([phone]) and they report there may be a bed available tomorrow and to send the patient's information. Explained to patient that a bed may not become available prior to discharge and that he may need to continue calling the CSS facilities on his own until a bed becomes available. Patient reports he could afford a couple nights at a hotel or a motel. This remote mortgage underwriter will follow up with patient and [facility] facilities tomorrow.
[2020-04-03] MEDS: ondansetron HCL 4 MG/2 ML VIAL IVPUSH (15:38)
[2020-04-03 15:52] VITALS: BP 136/85; PULSE 100; RESP 20; TEMP 36.3; O2SAT 99
[2020-04-03 19:46] VITALS: BP 159/95; PULSE 110; RESP 20; TEMP 36.6; O2SAT 99
[2020-04-03 23:30] VITALS: BP 129/78; PULSE 98; RESP 18; TEMP 36.9; O2SAT 97
[2020-04-04] MEDS: 0.9 % Sodium Chloride Flush 3 ML SYRINGE IVFLUSH ×2 (00:11→08:18)
[2020-04-04 03:43] VITALS: BP 130/71; PULSE 86; RESP 18; TEMP 36.9; O2SAT 98
[2020-04-04] MEDS: hydrOXYzine HCL 25 MG TABLET PO (04:34)
[2020-04-04] MEDS: Heparin Sodium,Porcine 5,000 UNIT/ML VIAL 5000 UNIT SUBCUT (05:51)
[2020-04-04 08:00] VITALS: BP 163/97; PULSE 108; RESP 18; TEMP 36.9; O2SAT 96
[2020-04-04] MEDS: Thiamine HCL 100 MG TABLET PO (08:18)
[2020-04-04] MEDS: Folic Acid 1 MG TABLET PO (08:18)
[2020-04-04] MEDS: PHENobarbitaL 30 MG TABLET PO (08:18)
--- NOTE | 2020-04-04 08:38 | MHC.RECOVSUP ---
Recovery Support note: This ticket writer received a call from [facility]. They report that based on the clinical information and the [facility] evaluation that was reviewed, patient is appropriate for their CSS and they will have a bed for him. Patient does not need to be seen by N again, patient was seen by N on 03/31/20 and that evaluation was sufficient for the CSS. [facility] reports that they will be able to accommodate patient on 04/05/20. This ticket writer explained that patient may end up discharging today but that he reports being able to go to a hotel to await placement. [facility] would prefer patient transfer directly from this facility to their facility as patient would not be appropriate for CSS if he starts drinking again. [facility] will see if patient can be accepted today in the event that he is discharged.
--- NOTE | 2020-04-04 09:44 | MHC.CM.PN ---
Patient will be discharging to [facility] at 12pm via chair van. Patient, nurse and MD are aware.
--- NOTE | 2020-04-04 11:15 | P.DS_ITS ---
DS: Providers Provider Date of admission: 03/31/20 23:33 Primary care physician: Elisabet Prabhakar MD Consults: 03/31/20 12:43 Consult to Crisis Stat Reason for consultation: Increased depression with thoughts of SI trying to overdose on alcohol Has provider been notified: Yes 04/03/20 15:14 Consult to Psychiatry Routine Consulting Provider: Seven Alarcon Reason for consultation: Depression and Anxiety Has provider been notified: No DS: Diagnosis Discharge Diagnosis (1) Depression: Status: Acute (2) Suicidal ideation: Status: Resolved (3) Alcohol withdrawal syndrome: Status: Acute (4) EtOH dependence: Status: Acute (5) HTN (hypertension): Status: Acute DS: Medications Discharge Medications Home Medications: Previous Rx's Medication Instructions Recorded atenolol 25 mg PO DAILY #30 tab 04/04/20 folic acid 1 mg PO DAILY #30 tab 04/04/20 gabapentin 300 mg PO TID #30 cap 04/04/20 hydroxyzine HCl 50 mg PO TID PRN #30 tab 04/04/20 naltrexone 50 mg PO DAILY #30 tab 04/04/20 paroxetine HCl 40 mg PO DAILY #30 tab 04/04/20 thiamine HCl (vitamin B1) 100 mg PO DAILY #30 tab 04/04/20 DS: Summary Hospital Course Hospital Course: This is a 60-year-old male with history of alcohol abuse, depression, hypertension, presents to the hospital initially stating that he had a suicide attempt by drinking 40 years in 48 hours. He was in that he would not wake up after drinking as many beers. He is severely depressed and does not want to live. [facility] evaluated patient and he was awaiting bed surge when he started having withdrawal symptoms including shakiness, hypertensive, tachycardic. Patient therefore is going to be admitted to medical team for alcohol withdrawal. He currently denies any headache, change in vision, chest pain, cough, shortness of breath, no abdominal pain. No nausea or vomiting but has diarrhea that started today. He has no urinary symptoms and No lower extremity edema. [place] heart rate [place] 128, temperature of 98.5?, respiratory rate of 20, blood pressure 173/91, satting 95% on room air Labs are significant for WBC count of 7.6, hemoglobin of 13.1, hematocrit 37.9, sodium of 138, potassium of 3.9, AST of 103, ALT of 84, UA negative, positive UDS for barbiturates as well as benzos, negative COVID Past medical history: Hypertension, cirrhosis, alcohol abuse- has not taking his blood pressure medications in 2 weeks Hospital course: # alcohol withdrawal/Alcohol dependence. He is a daily drinker and attempted to drink 48 beers to end his life 2 days prior to presentation to the hospital although he later said he didn't want to to kill himself and is very axious about becoming homeless. He has been treated with Phenobarbital. He had had tremors related to alcohol withdrawal but presently get shakes that he is self generating from been very anxious and can control these. Alcohol withdrawal was treated with Phenobarbital, Folic acid, thiamine and Atarax for anxiety. He's been prescribed Naltrexone as well. # ?suicide attempt/ideation-was evaluated by N and cleared, he denies SI at the present time # hypertension - continue atenolol #Depression/Anxiety--has been evaluated by Pyschiatry service and ill be restarted on Paxil Time Spent with Patient Time attestation: Total time spent providing and/or coordinating discharge services: Physical Exam Vital Signs: Vital Signs: Last Vital Signs Temp 98.4 F 04/04/20 08:00 Pulse 108 H 04/04/20 08:00 Resp 18 04/04/20 08:00 BP 163/97 H 04/04/20 08:00 Pulse Ox 96 04/04/20 08:00 Body Mass Index 29.7 General: AO X 3, no acute distress Resp: CTA bilateral CVS: S1,S2,RRR GI: +BS, NT, no distention Skin: No rash Neuro: motor grossly intact Psych: appropriate affect, no SI DS: Data Data Completed and Pending Labs on day of discharge: 03/31/20 10:36 LORazepam [Ativan] 2 mg IM STAT STA 03/31/20 12:48 Basic Metabolic Panel Stat Complete Blood Count Auto Diff Stat Ethanol Stat Hold Lav - Possible Hematology Stat Hold Lt Blue - Possible Coag Stat Liver Panel Stat Magnesium Stat 03/31/20 14:07 Drug Screen Urine Stat 03/31/20 16:09 LORazepam [Ativan] 2 mg PO RQ6H PRN 03/31/20 18:00 chlordiazePOXIDE HCl [Librium] 50 mg PO ONCE ONE 03/31/20 20:05 LORazepam [Ativan] 2 mg PO ONCE ONE 03/31/20 23:12 Consult Rx EtOH Phenob Dosing 1 each MISCELLANE ONCE ONE 03/31/20 23:16 LORazepam [Ativan] 2 mg IVPUSH ONCE ONE 03/31/20 23:29 Transfer Order Routine 04/01/20 00:00 PHENobarbitaL sodium 186 mg IM ONCE ONE 04/01/20 00:06 LORazepam [Ativan] 2 mg IM ONCE ONE 04/01/20 02:22 COVID-19 ID NOW (Roth) Stat 04/01/20 03:00 PHENobarbitaL sodium 140 mg IM Q3H 04/01/20 05:44 Consult Rx EtOH Phenob Dosing 1 each MISCELLANE ONCE ONE 04/01/20 06:11 Basic Metabolic Panel Routine Complete Blood Count Auto Diff Routine 04/01/20 09:00 PHENobarbitaL 60 mg PO BID 04/01/20 23:15 PHENobarbitaL sodium 130 mg IM ONCE ONE 04/02/20 06:47 PHENobarbitaL sodium 130 mg IM ONCE ONE 04/02/20 13:16 hydrOXYzine HCL [Atarax] 25 mg PO ONCE ONE Laboratory Last Values WBC 5.9 X10*3/uL (4.8-10.8) 04/01/20 06:11 RBC 4.29 X10*6/uL (4.60-5.80) L 04/01/20 06:11 Hgb 13.1 g/dl (14.0-18.0) L 04/01/20 06:11 Hct 37.8 % (42-52) L 04/01/20 06:11 MCV 88.1 fL (80-98) 04/01/20 06:11 MCH 30.5 pg (27.0-33.0) 04/01/20 06:11 MCHC 34.7 g/dl (31.0-36.0) 04/01/20 06:11 RDW 14.1 % (11.0-16.0) 04/01/20 06:11 Plt Count 185 X10*3/uL (160-400) 04/01/20 06:11 MPV 9.4 fL (9.4-12.4) 04/01/20 06:11 Immature Gran % (Auto) 0.3 % (0.0-0.4) 04/01/20 06:11 Neut % (Auto) 63.7 % (45-73) 04/01/20 06:11 Lymph % (Auto) 21.1 % (20-40) 04/01/20 06:11 Rains % (Auto) 10.9 % (2-11) 04/01/20 06:11 Eos % (Auto) 3.1 % (0-4) 04/01/20 06:11 Baso % (Auto) 0.9 % (0-2) 04/01/20 06:11 Lymph # (Auto) 1.2 X10*3/uL (1.2-4.9) 04/01/20 06:11 Rains # (Auto) 0.6 X10*3/uL (0.1-1.2) 04/01/20 06:11 Eos # (Auto) 0.2 X10*3/uL (0.0-0.4) 04/01/20 06:11 Baso # (Auto) 0.1 X10*3/uL (0.0-0.2) 04/01/20 06:11 Abs Immat Gran (auto) 0.02 X10*3/uL (0.00-0.03) 04/01/20 06:11 Absolute Neuts (auto) 3.7 X10*3/uL (2.0-8.3) 04/01/20 06:11 Absolute Nucleated RBC 0.000 X10*3/uL (0.0-0.012) 04/01/20 06:11 Nucleated RBC % (auto) 0.0 /100WBC (0.0-0.2) 04/01/20 06:11 Hold Purple Top SEE NOTE 03/31/20 12:48 Hold Blue Top SEE NOTE 03/31/20 12:48 Sodium 134 mmol/L (135-145) L 04/01/20 06:11 Potassium 3.9 mmol/l (3.3-5.1) 04/01/20 06:11 Chloride 97 mmol/L (96-108) 04/01/20 06:11 Carbon Dioxide 24 mmol/L (22-29) 04/01/20 06:11 Anion Gap 17 (12-20) 04/01/20 06:11 BUN 4 mg/dL (9-16) L 04/01/20 06:11 Creatinine 0.59 mg/dL (0.5-1.4) 04/01/20 06:11 Estim Creat Clear Calc 158.4 04/01/20 06:11 Estimated GFR > 60 04/01/20 06:11 Random Glucose 78 mg/dL (60-115) 04/01/20 06:11 Calcium 8.2 mg/dL (8.4-10.2) L D 04/01/20 06:11 Magnesium 1.9 mg/dL (1.6-2.6) 03/31/20 12:48 Total Bilirubin 0.4 mg/dL (0.0-1.0) 03/31/20 12:48 Direct Bilirubin 0.3 mg/dL (0.0-0.5) 03/31/20 12:48 AST 103 U/L (5-37) H 03/31/20 12:48 ALT 84 U/L (0-40) H 03/31/20 12:48 Alkaline Phosphatase 67 U/L (39-117) 03/31/20 12:48 Total Protein 6.4 g/dL (6.5-8.0) L 03/31/20 12:48 Albumin 3.9 g/dL (3.5-5.0) 03/31/20 12:48 Urine Color YELLOW 03/31/20 14:07 Urine Appearance CLEAR 03/31/20 14:07 Urine pH 6.0 (5.0-8.0) 03/31/20 14:07 Ur Specific [place] 1.015 (1.005-1.025) 03/31/20 14:07 Urine Protein NEG MG/DL (NEG-TRACE) 03/31/20 14:07 Urine Glucose (UA) NEG MG/DL (NEG) 03/31/20 14:07 Urine Ketones 15 MG/DL (NEG) 03/31/20 14:07 Urine Blood TRACE (NEG) 03/31/20 14:07 Urine Nitrite NEG (NEG) 03/31/20 14:07 Ur Leukocyte Esterase NEG (NEG) 03/31/20 14:07 Urine RBC 0-2 /HPF (0) 03/31/20 14:07 Urine WBC 0 /HPF (0-4) 03/31/20 14:07 Ur Squamous Epith Cells TRACE /LPF 03/31/20 14:07 Urine Bacteria NONE /LPF 03/31/20 14:07 Urine Opiates Screen Not Detected (Not Detect) 03/31/20 14:07 Ur Barbiturates Screen POSITIVE (Not Detect) H 03/31/20 14:07 Ur Phencyclidine Scrn Not Detected (Not Detect) 03/31/20 14:07 Ur Amphetamines Screen Not Detected (Not Detect) 03/31/20 14:07 U Benzodiazepines Scrn POSITIVE (Not Detect) H 03/31/20 14:07 Urine Cocaine Screen Not Detected (Not Detect) 03/31/20 14:07 U Marijuana (THC) Screen Not Detected (Not Detect) 03/31/20 14:07 Ethyl Alcohol 230 mg/dL 03/31/20 12:48 COVID-19 (SERJIO) Negative (Negative) 04/01/20 02:22 COVID-19 Clin Com See Note 04/01/20 02:22 Discharge Plan Discharge Anticipated Discharge Date/Time: 04/04/20 10:28 Patient Disposition: Xfer Psychiatric Hosp Referrals: [facility] [Outside] Elisabet Prabhakar MD [Primary Care Provider] - Discharge Medications: New folic acid 1 mg Tablet 1 mg PO DAILY Qty: 30 RF: 0 naltrexone 50 mg tablet 50 mg PO DAILY Qty: 30 RF: 0 Continued atenolol 25 mg Tablet 25 mg PO DAILY Qty: 30 RF: 0 thiamine HCl (vitamin B1) 100 mg Tablet 100 mg PO DAILY Qty: 30 RF: 0 hydroxyzine HCl 50 mg Tablet 50 mg PO TID PRN (Reason: NAUSE) Qty: 30 RF: 0 gabapentin 300 mg Capsule 300 mg PO TID Qty: 30 RF: 0 paroxetine HCl 40 mg Tablet 40 mg PO DAILY Qty: 30 RF: 0 Discontinued disulfiram 250 mg Tablet 250 mg PO DAILY RF: 0 ondansetron [Zofran ODT] 4 mg Tablet,Disintegrating 4 mg PO Q8H PRN (Reason: Nausea) RF: 0 Discharge Orders: Discharge Order (Routine); Ordered 04/04/20 Ordered By: Carter Gonzalez Diet: advance to usual diet Activity on Discharge: As tolerated Visit Report Forms: Patient Portal Discharge page Care Plan Goals: Stay sobber Health Concerns: Chronic alcoholism Plan of Treatment: To [place] detox Discharge Date/Time: 04/04/20 12:24
[2020-04-04 12:04] LABS: COVID-19 Test Negative (Negative)
== END 2020-04-04 12:24 | DRG 817 ==
LOC: HO.ED 23:20 → HO.IMC 04-01 03:55
PROVIDERS: Internal Medicine; Physician Assistant Medical; Admitting Provider Internal Medicine; Emergency Provider Emergency Medicine; PCP Internal Medicine; Visit Provider Internal Medicine
DX: T51.0X2A Toxic effect of ethanol, intentional self-harm, initial encounter (principal); R45.851 Suicidal ideations; Y92.9 Unspecified place or not applicable; F10.239 Alcohol dependence with withdrawal, unspecified; F10.229 Alcohol dependence with intoxication, unspecified; F32.9 Major depressive disorder, single episode, unspecified; I10 Essential (primary) hypertension; L40.9 Psoriasis, unspecified; Z20.828 Contact with and (suspected) exposure to other viral communicable diseases; Z79.899 Other long term (current) drug therapy
CPT/HCPCS: 36415; 80048; 80076; 80307; 80320; 81001; 83735; 85025; 87635; 96372; 96374; 99285; J2060; J2405; J2560